=== PATIENT | male | born 1985 | race Caucasian/White ===

== ENCOUNTER 2018-12-03 07:24 | Day surgery (SDC) | payer OTHER ==
[2018-12-03] VITALS (19 sets, daily range): BP systolic 110–140; BP diastolic 66–86; PULSE 61–89; RESP 16–18; Ht 180.3 cm; Wt 93.9 kg
[~2018-12-03] VITALS: Ht 180.3 cm; Wt 93.9 kg
--- NOTE | 2018-12-03 06:12 | HP ---
DATE OF ADMISSION: 12/03/2018 HISTORY: A 33-year-old male patient with a long history of nasal obstruction to breathing. ALLERGIES: NO HISTORY OF ALLERGY. Seen to have obstructive septal deviation with turbinate hypertrophy sustained a nasal injury several years ago, noted to have septal deviation with turbinate hypertrophy, now admitted to the hospital f or nasal corrective surgery. PAST MEDICAL HISTORY, ALLERGIES, DAILY MEDICATIONS, MEDICAL CONDITIONS, CLOTTING DISORDERS, FAMILY HI STORY, REVIEW OF SYSTEMS: Negative. PAST SURGICAL HISTORY: Nasal surgery. HABITS: Tobacco 1 pack a day. Alcohol occasional. Recreational drugs: None. PHYSICAL EXAMINATION: GENERAL: Well-developed, well-nourished male patient in no acute distress. HEAD: Normocephalic. No masses or deformities. EARS: Ears and tympanic membranes are normal. NOSE: Septal deviation with turbinate hypertrophy, evidence of old nasal fracture. Oropharynx is cl ear. NECK: No masses or adenopathy. CHEST: Clear to P and A. HEART: Regular sinus rhythm without murmur. ABDOMEN: Soft, bowel sounds normal. No masses or megaly. EXTREMITIES: Full range of motion without deformity. NEUROLOGIC: Physiologic. RECTAL: Not done. IMPRESSION: Septal deviation with turbinate hypertrophy. RECOMMENDATIONS: Admit for surgery. Dictated By: JOSH AGGARWAL/FANNY Conf#: [id number] DID#: [id number]
[~2018-12-03 07:24] MED LIST: SEVOFLURANE 15 MIN ONE
[2018-12-03] MEDS ORDERED: LACTATED RINGER'S 1,000 ML IV SCH (08:30)
[2018-12-03] MEDS ORDERED: LIDOCAINE 1%/EPI 30 ML INJ ONE (09:03)
[2018-12-03] MEDS ORDERED: COCAINE 4% 4 ML TOP ONE (09:04)
[2018-12-03] MEDS ORDERED: OXYMETAZOLINE 0.05% 15 ML NAS SPRAY NASAL ONE (09:04)
[2018-12-03] MEDS ORDERED: BACITRACIN/POLYMYXIN 28.35 GM OINT TOP ONE (09:10)
--- NOTE | 2018-12-03 09:11 | PREAC ---
Date/Time of Note Date/Time of Note DATE: 12/03/18 TIME: 09:10 Anesthesia Eval and Record Evaluation Time Pre-Procedure Interview DATE: 12/03/18 TIME: 09:10 Age 33 Sex male NPO: 8 hrs Preoperative diagnosis Septum deviation Planned procedure Septoplasty Past Medical History Past Medical History: Includes Cardio: Dyslipidemia Pulm: Smoking Hx GI: Morbid obesity Surgery & Anesthesia Issues No known issue Meds Anticoagulation: No Beta Bob within 24 hr: No Reason Beta Bob not given: Pt. not on B-Bob No Active Prescriptions or Reported Meds Current Medications Lactated Ringer's 1,000 ml @ 25 mls/hr Q24H IV ; Start 12/03/18 at 08:30 Meds reviewed: Yes Allergies Coded Allergies: No Known Allergy (Unverified , 12/03/18) Allergies Reviewed: Yes Labs/Studies Labs Reviewed: Reviewed by anesthesiologist test: N/A Pre-procedure Exam Last vitals Vital Signs Date Temp Pulse Resp B/P (MAP) Pulse Ox O2 O2 Flow FiO2 Time Delivery Rate 12/03/18 97.6 78 16 110/72 97 Room Air 08:09 (85) Airway: Adequate mouth opening, Adequate thyromental dist Mallampati: Mallampati III Teeth: Normal Lung: Normal Heart: Normal ASA Physical Status ASA physical status: 2 Emergency: None Planned Anesthetic General/MAC: ETT Planned Pain Management Parenteral pain med Pre-operative Attestations Prior to commencing anesthesia and surgery, the patient was re-evaluated, there was verification of: *The patient's identity *The results of appropriate recent lab work and preoperative vital signs *The above evaluation not changing prior to induction *Anesthetic plan, risk benefits, alternative and complications discussed with patient/family; questions answered; patient/family understands, accepts and wishes to proceed. ANNA SAMANO MD Dec 03, 2018 09:11
[2018-12-03] MEDS ORDERED: MIDAZOLAM 1 MG/ML 2 ML INJ ONE (09:15)
[2018-12-03] MEDS ORDERED: FENTAnyl 50 MCG/ML VIAL ONE ×2 (09:15→09:22)
[2018-12-03] MEDS ORDERED: LIDOCAINE 1%/EPI (1:100,000) (MDV) 20 ML INJ ONE (09:50)
[2018-12-03] MEDS ORDERED: PROPOFOL 20 ML ONE (10:06)
[2018-12-03] MEDS ORDERED: LIDOCAINE 2% (SDV) 5 ML INJ ONE (10:06)
[2018-12-03] MEDS ORDERED: ROCURONIUM 50 MG INJ ONE (10:06)
[2018-12-03] MEDS ORDERED: ONDANSETRON 4 MG INJ ONE (10:11)
[2018-12-03] MEDS ORDERED: NEOSTIGMINE 3 MG/3 ML SYRINGE ONE (10:15)
[2018-12-03] MEDS ORDERED: GLYCOPYRROLATE 0.4 MG INJ ONE (10:15)
--- NOTE | 2018-12-03 10:23 | PAC ---
Date/Time of Note Date/Time of Note DATE: 12/03/18 TIME: 10:23 Post-Anesthesia Notes Post-Anesthesia Note Last documented vital signs Vital Signs Date Temp Pulse Resp B/P (MAP) Pulse Ox O2 O2 Flow FiO2 Time Delivery Rate 12/03/18 97.6 78 16 110/72 97 Room Air 08:09 (85) Activity: WNL Respiratory function: WNL Cardiovascular function: WNL Mental status: Baseline Pain reasonably controlled: Yes Hydration appropriate: Yes Nausea/Vomiting absent: Yes Comments BP:134/78, P:86, Spo2:100%, T:98,8 ANNA SAMANO MD Dec 03, 2018 10:23
--- NOTE | 2018-12-03 10:25 | SIPON ---
Date/Time of Note Date/Time of Note DATE: 12/03/18 TIME: 10:13 Operative Report Preoperative Diagnosis septal deviatiom turb hyp Postoperative Diagnosis same Operation/Procedure Performed septo tub raed Surgeon randa signature line outpatient physical therapist assistant none Anesthesia: general Estimated blood loss: 0 - 10 ml's Transfusion Required none Specimen to path Grafts/Implants none Complications none JOSH WOODS MD Dec 03, 2018 10:25
[2018-12-03] MEDS ORDERED: LABETALOL HCL 20MG INJ IV PRN (10:30)
[2018-12-03] MEDS ORDERED: MEPERIDINE 25 MG INJ IV PRN (10:30)
[2018-12-03] MEDS ORDERED: hydrALAzine 20 MG INJ IV PRN (10:30)
[2018-12-03] MEDS ORDERED: DIPHENHYDRAMINE 50 MG INJ IV PRN (10:30)
[2018-12-03] MEDS ORDERED: ONDANSETRON 4 MG INJ IV PRN (10:30)
[2018-12-03] MEDS ORDERED: HYDROmorphONE 1 MG/5 ML IV SYRINGE IV PRN ×2 (10:30)
[2018-12-03] MEDS ORDERED: METOCLOPRAMIDE 10 MG INJ IV PRN (10:30)
[2018-12-03] MEDS ORDERED: ACETAMINOPHEN 325 MG TAB ONE (11:15)
[2018-12-03] MEDS: FENTAnyl 50 MCG/ML VIAL IV PRN ×3 (11:25→11:41)
[2018-12-03] MEDS ORDERED: HYDROCODONE/APAP (7.5/325) TAB PO PRN (13:00)
--- NOTE | 2018-12-03 13:52 | OPR ---
DATE OF OPERATION: 12/03/2018 PREOPERATIVE DIAGNOSIS: Septal deviation with turbinate hypertrophy. POSTOPERATIVE DIAGNOSIS: Septal deviation with turbinate hypertrophy. PROCEDURE PERFORMED: Septoplasty with turbinate reduction. OPERATION: The patient was brought to the operating room under parenteral sedation, general oral end otracheal anesthesia with the patient in the supine position, sterile sheets and drapes applied. Nos e was anesthetized topically with Xylocaine 1% epinephrine 1:100,000 injectable and 5% cocaine cotton oid. There had been prior surgery. A left hemitransfixion incision was made. Septal flaps were maggy vated bilaterally exposing the quadrilateral cartilage and the perpendicular plate at the ethmoid and vomer bones. Considerable scar tissue was encountered due to prior surgery. The septal cartilage w as detached from the crest of the premaxilla and vertically through and through cut and small strips were removed inferiorly and posteriorly to allow the septal cartilage to come to the midline. The pe rpendicular plate of the ethmoid and vomer bones was then exposed via subperiosteal tunnels. Mallet and chisel were utilized to remove a vomerine spur on the left side. The septal compartment was then suctioned. The inferior turbinate bones were lightly fractured and out lightly crushed and outfract ured. Incision was closed with interrupted 4-0 chromic. The nose was packed with bacitracin impregn ated nasal pore sponge. Drip pad was applied. The patient was awakened and extubated in the operati ng room and returned to recovery in excellent condition. ESTIMATED BLOOD LOSS: Nil. COMPLICATIONS: None. Dictated By: JOSH AGGARWAL/FANNY Conf#: [id number] DID#: [id number]
== END 2018-12-03 13:00 | disposition home or self-care (01) ==
LOC: SDS 07:24
PROVIDERS: ATTEND Otolaryngology Otolaryngology/Facial Plastic Surgery
DX: J34.2 Deviated nasal septum (principal); J34.3 Hypertrophy of nasal turbinates; Z87.891 Personal history of nicotine dependence
CPT/HCPCS: 30140; 30520; 88300; J1170; J2250; J2405; J2710; J3010; Z7512; Z7610

== ENCOUNTER 2018-12-07 21:45 | Emergency (ER) | payer OTHER ==
[~2018-12-07] VITALS: Ht 180.3 cm; Wt 91.2 kg
[2018-12-07 21:55] VITALS: BP 144/91; PULSE 102; RESP 20; Ht 180.3 cm; Wt 91.2 kg
--- NOTE | 2018-12-08 01:41 | ERD ---
ER Documentation Chief Complaint Chief Complaint wants nasal packing removed. s/p nasal surgery 4 days ago ROS All systems reviewed and are negative except as per history of present illness. Medications Home Meds No Active Prescriptions or Reported Meds Allergies Allergies: Coded Allergies: No Known Allergy (Unverified , 12/03/18) PMhx/Soc History of Surgery: Yes (NOSE SX) Anesthesia Reaction: No Hx Neurological Disorder: No Hx Respiratory Disorders: No Hx Cardiac Disorders: No Hx Psychiatric Problems: No Hx Miscellaneous Medical Probl: No Hx Alcohol Use: Yes (OCC) Hx Substance Use: No Hx Tobacco Use: Yes (1 PACK A DAY) Smoking Status: Current every day smoker Physical Exam Vitals Vital Signs Date Temp Pulse Resp B/P (MAP) Pulse Ox O2 O2 Flow FiO2 Time Delivery Rate 12/07/18 97.8 102 20 144/91 100 21:55 (108) Physical Exam Const: No acute distress Head: Atraumatic Eyes: Normal Conjunctiva ENT: Normal External Ears, Nose and Mouth. Neck: Full range of motion. No meningismus. Resp: Clear to auscultation bilaterally Cardio: Regular rate and rhythm, no murmurs Abd: Soft, non tender, non distended. Normal bowel sounds Skin: No petechiae or rashes Back: No midline or flank tenderness Ext: No cyanosis, or edema Neur: Awake and alert Psych: Normal Mood and Affect Departure Diagnosis: Primary Impression: Encounter for removal of nasal packing Condition: Fair Patient Instructions: Understanding Nasal Anatomy: Inside View Referrals: [facility] YOU HAVE RECEIVED A MEDICAL SCREENING EXAM AND THE RESULTS INDICATE THAT YOU DO NOT HAVE A CONDITION THAT REQUIRES URGENT TREATMENT IN THE EMERGENCY DEPARTMENT. FURTHER EVALUATION AND TREATMENT OF YOUR CONDITION CAN WAIT UNTIL YOU ARE SEEN IN YOUR DOCTORS OFFICE WITHIN THE NEXT 1-2 DAYS. IT IS YOUR RESPONSIBILITY TO MAKE AN APPOINTMENT FOR FOLOW-UP CARE. IF YOU HAVE A PRIMARY DOCTOR --you should call your primary doctor and schedule an appointment IF YOU DO NOT HAVE A PRIMARY DOCTOR YOU CAN CALL OUR PHYSICIAN REFERRAL HOTLINE AT IF YOU CAN NOT AFFORD TO SEE A PHYSICIAN YOU CAN CHOSE FROM THE FOLLOWING [facility] [address] [place] [facility]. [facility] [address] [facility] [address] [facility] [address] [facility] [address] [facility]. [facility] [address] Additional Instructions: Call your primary care doctor TOMORROW for an appointment during the next 1-2 days.See the doctor sooner or return here if your condition worsens before your appointment time. Follow up with ENT. REINIER EPSTEIN DO Dec 08, 2018 01:41
== END 2018-12-08 01:47 | disposition home or self-care (01) ==
LOC: FTE 21:45
DX: Z48.00 Encounter for change or removal of nonsurgical wound dressing (principal); F17.210 Nicotine dependence, cigarettes, uncomplicated
CPT/HCPCS: 99282